=== PATIENT | male | born 2000 | race American Indian/Alaskan Native ===

== ENCOUNTER 2020-11-08 06:44 | Day surgery (SDC) | payer OTHER ==
[~2020-11-08 06:44] MED LIST: BACTERIOSTATIC SODIUM CHLORIDE 0.9% 30 ML VIAL INFILTRATI ONE; BUPIVACAINE/PF (0.25%) 2.5 MG/ML 30 ML VIAL INFILTRATI ONE; LACTATED RINGERS 1,000 ML IV SCH; MIDAZOLAM 2 MG/2 ML INJ IV NR; SODIUM CHLORIDE 0.9% IRR 1,500 ML BOTTLE IR ONE; ceFAZolin/Water 2 GM/20 ML 2 GM/20 ML SYRINGE IV NR
[2020-11-08] MEDS ORDERED: ONDANSETRON 4 MG/2 ML INJ ONE (07:00)
[2020-11-08] MEDS ORDERED: dexAMETHasone 20 MG/5 ML VIAL ONE (07:00)
[2020-11-08] MEDS ORDERED: LIDOCAINE MPF (2%) 20 MG/1 ML VIAL 5 ML ONE (07:00)
[2020-11-08] MEDS ORDERED: BUPIVACAINE/PF (0.25%) 2.5 MG/ML 30 ML VIAL INFILTRATI ONE (07:01)
[2020-11-08] MEDS ORDERED: fentaNYL 100 MCG/2 ML INJ ONE (07:02)
[2020-11-08] MEDS ORDERED: propofoL 200 MG/20 ML VIAL IV ONE ×2 (07:02→08:12)
[2020-11-08] MEDS ORDERED: HYDROmorphone 1 MG/1 ML INJ ONE (07:02)
[2020-11-08] MEDS ORDERED: ePHEDrine SULFATE 50 MG/1 ML INJ ONE (07:03)
--- NOTE | 2020-11-08 07:28 | Anesthesia Consultation ---
Anesthesia Consult and Med Hx Date of service: 11/08/20 - Airway Anesthetic Teeth Evaluation: Good ROM Head & Neck: Adequate Mental/Hyoid Distance: Adequate Mallampati Class: Class III Intubation Access Assessment: Possibly Difficult - Pre-Operative Health Status ASA Pre-Surgery Classification: ASA1 Proposed Anesthetic Plan: General - Pulmonary Hx Smoking: No Hx Respiratory Symptoms: No Hx Sleep Apnea: No (DEVIN PRE SCREEN LOW RISK.) - Cardiovascular System Hx Hypertension: No - Central Nervous System CVA: No - Endocrine Hx Renal Disease: No Hx Liver Disease: No Hx Insulin Dependent Diabetes: No Hx Non-Insulin Dependent Diabetes: No Hx Thyroid Disease: No - Other Systems Hx Obesity: Yes (BMI 33) - Additional Comments Anesthesia Medical History Comments: No prior GA. No Fhx anesthetic complications.
--- NOTE | 2020-11-08 07:28 | Anesthesia Day of Surgery ---
Anesthesia Day of Surgery - Day of Surgery Patient Examined: Yes Patient H&P Reviewed: Yes Patient is NPO: Yes
[2020-11-08] MEDS ORDERED: ACETAMINOPHEN IV 1,000 MG/100 ML BOTTLE IV ONE (07:34)
[2020-11-08] MEDS ORDERED: SODIUM CHLORIDE 0.9% IRR 1,500 ML BOTTLE IR ONE (08:17)
[2020-11-08] MEDS ORDERED: ONDANSETRON 4 MG/2 ML INJ IV PRN (08:30)
[2020-11-08] MEDS ORDERED: oxyCODONE /ACETAMINOPHEN 5-325MG TAB PO PRN (08:30)
[2020-11-08] MEDS ORDERED: HYDROmorphone 1 MG/1 ML INJ IV PRN (08:30)
--- NOTE | 2020-11-08 08:53 | Short Stay Summary ---
Short Stay Documentation Date of service: 11/01/20 - History H&P: obtained from office - Allergies and Medications Current Medications: Allergies No Known Allergies Allergy (Verified 10/08/20 09:24) Home Medications Medication Instructions Recorded Confirmed Last Taken Type No Known Home Medications [No 03/04/20 11/02/20 Unknown History Reported Home Medications] Active Medications Hydromorphone HCl (Hydromorphone 1 Mg/1 Ml Inj) 0.5 mg IV Q10MIN PRN PRN Reason: Pain , Severe (7-10) Stop: 11/08/20 18:00 Cefazolin Sodium (Ancef/Sterile Water 2 Gm/20 Ml) 2 gm in 20 mls @ 80 mls/hr IV PREOP NR; Protocol Stop: 11/08/20 23:59 Lactated Ringer's (Lactated Ringers) 1,000 mls @ 100 mls/hr IV DIRECT YARI Stop: 11/08/20 23:59 Midazolam HCl (Midazolam 2 Mg/2 Ml Inj) 2 mg IV PREOP NR Stop: 11/08/20 21:00 Ondansetron HCl (Ondansetron 4 Mg/2 Ml Inj) 4 mg IV ONCE PRN PRN Reason: Nausea And Vomiting Stop: 11/08/20 18:00 Oxycodone/Acetaminophen (Oxycodone /Acetaminophen 5-325mg Tab) 1 tab PO ONCE PRN PRN Reason: Pain, Moderate (4-6) Stop: 11/08/20 18:00 - Brief post op/procedure progress note Date of procedure: 11/08/20 Pre-op diagnosis: phimosis Procedure: circ Anesthesia: GETA Surgeon: ISAMAR FLORES Estimated blood loss: minimal Pathology: list (foreskin) Specimen disposition: to lab Condition: stable - Hospital course Hospital course: norco erx done--copy on chart - Disposition Condition at discharge: Stable Short Stay Discharge Plan Follow up with: BRISSA MANZANARES NP [Primary Care Provider] - 7 Days Forms: Outpatient Surgery DC Inst.
[2020-11-08 09:49] VITALS: BP 123/73
--- NOTE | 2020-11-08 10:33 | Post Anesthesia Evaluation ---
- Post Anesthesia Evaluation Patient Participated: Yes Airway Patent: Yes Stable Respiratory Function: Yes Nausea/Vomiting: No Temp > 96.8F: Yes Pain Manageable: Yes Adequeate Hydration: Yes Anesthesia Complications: No
--- NOTE | 2020-11-08 11:32 | Operative Report ---
DATE OF SURGERY: 11/08/2020 PREOPERATIVE DIAGNOSIS: Phimosis. POSTOPERATIVE DIAGNOSIS: Phimosis. PROCEDURE: Circumcision. SURGEON: Bon Davis MD ANESTHESIA: General. ESTIMATED BLOOD LOSS: Minimal. FLUIDS: Crystalloid. COMPLICATIONS: No complications. INDICATIONS: This patient is a 20-year-old gentleman, seen in the office with cracking and bleeding of his foreskin. Exam was consistent with phimosis. Risks, benefits, complications were explained. The patient agreed to proceed with surgical intervention. DESCRIPTION OF PROCEDURE: The patient was taken to the operative suite, placed in a supine position. After adequate general anesthesia, he was prepped and draped in a sterile fashion. His foreskin was marked at the level of the coronal ridge. Dorsal and ventral slit was marked. Dorsal and ventral slit was made and foreskin was circumferentially removed and sent for routine pathologic evaluation. Shaft skin was retracted proximally. Adequate hemostasis achieved. Proximal and distal shaft skin was reapproximated, closed with 3-0 chromic in interrupted fashion. Xeroform gauze was placed around the incision. Giancarlo and Coban was placed as well. The patient tolerated the procedure well. He was extubated and taken to the recovery room in stable condition. He will go home with [place] and follow up in the office. TID: [id number] RECEIPT: [id number] Ebony/MAXINE/PRAKASH
== END 2020-11-08 10:10 | disposition home or self-care (01) ==
LOC: OR 06:44
PROVIDERS: ATTEND Urology
DX: N47.1 Phimosis (principal); K62.89 Other specified diseases of anus and rectum; E66.9 Obesity, unspecified; Z68.33 Body mass index [BMI] 33.0-33.9, adult
CPT/HCPCS: 54161; 88304; J0131; J0690; J1100; J1170; J2250; J2405; J2704; J3010; J7120